=== PATIENT | female | born 1975 | race African-American/Black ===

== ENCOUNTER 2017-07-05 14:55 | Inpatient (IN) ==
[2017-07-05 16:04] LABS: Basophils # 0.1 10*3/uL (0.0-0.2); Basophils % 0.7 % (0.0-0.8); Eosinophils # 0.1 10*3/uL (0.0-0.87); Eosinophils % 0.8 % (0.00-10.9); Hematocrit 40.1 VOL% (35.7-47.0); Hemoglobin 12.9 GM/DL (12.0-16.0); Immature Granulocytes % 0.6 %; Immature Granulocytes Absolute 0.08 #; Lymphocytes # 2.7 10*3/uL (1.4-4.0); Lymphocytes % 19.1 % (21.3-54.2); Mean Corpuscular HGB Conc 32.2 GM/DL (32-36); Mean Corpuscular Hemoglobin 28 PG (27-34); Mean Corpuscular Volume 88.3 FL (87-102); Mean Platelet Volume 10.9 FL (9.6-12.0); Monocytes # 0.8 10*3/uL (0.11-0.8); Monocytes % 5.6 % (1.7-12.7); Neutrophils # 10.5 10*3/uL (1.4-7.4); Neutrophils % 73.2 % (38.7-73.9); Platelet Count 312 T/CUMM (130-400); Red Blood Count 4.54 MC/CUMM (3.8-5.5); Red Cell Distribution Width 13.2 % (9.3-17.3); White Blood Count 14.4 T/CUMM (4-12)
[2017-07-05 16:09] LABS: INR 0.9
[2017-07-05 16:18] LABS: Apearance,Urine CLEAR (Clear); Bilirubin,Urine Negative (Negative); Blood, Urine Negative (Negative); Glucose,Urine (UA) Negative (Negative); Ketones,Urine 5 mg/dL (Negative); Nitrite,Urine Negative (Negative); Protein,Urine Negative; RBC,Urine <1 /HPF (0-4); Squamous Epithelial Cell,Urine Occasional /HPF (0-10); Urine Color Straw (Yellow); Urine Specific Gravity 1.008 (1.001-1.035); Urine Urobilinogen < 2.0 EU/DL (0.2-1.0); WBC,Urine 1 /HPF (0-6)
[2017-07-05 16:29] LABS: Alanine Aminotransferase 19 U/L (13-56); Albumin 3.8 G/DL (3.4-5.0); Alkaline Phosphatase 75 U/L (45-117); Aspartate Amino Transferase 11 U/L (0-37); Bilirubin,Total < 0.39 MG/DL (0.2-1.0); Blood Urea Nitrogen 10 MG/DL (7-18); Calcium 8.7 MG/DL (8.5-10.1); Glucose 123 MG/DL (74-106); Sodium 136 MMOL/L (136-145)
[2017-07-05 16:30] LABS: Potassium 3.5 MMOL/L (3.5-5.1); Troponin I Only < 0.015 NG/ML (0.00-0.045)
[2017-07-05 16:32] LABS: Barbiturates Screen,Urine Negative (Negative); Benzodiazepines Screen,Urine Negative (Negative); Cannabinoid Screen,Urine Negative (Negative); Opiate Screen,Urine Negative (Negative); Phencyclidine Screen,Urine Negative (Negative)
[2017-07-05] MEDS ORDERED: ONDANSETRON 4 MG/2 ML VIAL IV PRN (18:21)
[2017-07-05] MEDS ORDERED: PROMETHAZINE INJ 12.5 MG in SODIUM CHLORIDE 0.9% 50 ML IV STA (18:44)
[2017-07-05] MEDS: cefTRIAXone 2,000 MG in SODIUM CHLORIDE 0.9% 100 ML IV SCH (20:56)
[2017-07-05] MEDS: ENOXAPARIN 40 MG/0.4 ML SYRINGE SUBCUT SCH (21:01)
[2017-07-06 07:23] LABS: Basophils # 0.1 10*3/uL (0.0-0.2); Basophils % 0.7 % (0.0-0.8); Eosinophils # 0.2 10*3/uL (0.0-0.87); Hematocrit 36.8 VOL% (35.7-47.0); Immature Granulocytes % 0.5 %; Immature Granulocytes Absolute 0.04 #; Lymphocytes # 2.5 10*3/uL (1.4-4.0); Lymphocytes % 28.3 % (21.3-54.2); Mean Corpuscular HGB Conc 32.6 GM/DL (32-36); Mean Corpuscular Hemoglobin 28 PG (27-34); Mean Platelet Volume 11.2 FL (9.6-12.0); Monocytes # 0.7 10*3/uL (0.11-0.8); Monocytes % 7.6 % (1.7-12.7); Neutrophils # 5.4 10*3/uL (1.4-7.4); Neutrophils % 60.9 % (38.7-73.9); Platelet Count 310 T/CUMM (130-400); Red Blood Count 4.23 MC/CUMM (3.8-5.5); Red Cell Distribution Width 13.3 % (9.3-17.3); White Blood Count 8.9 T/CUMM (4-12)
[2017-07-06] MEDS: hydroCHLOROthiazide 12.5 MG CAPSULE PO SCH (09:00)
[2017-07-06] MEDS: PANTOPRAZOLE 40 MG TABLET PO SCH (09:00)
[2017-07-06] MEDS: amLODIPine 10 MG TABLET PO SCH (09:00)
[2017-07-06] MEDS: FLUoxetine 20 MG CAPSULE PO SCH ×2 (09:00→09:03)
[2017-07-06] MEDS: oxyCODONE/ACETAMINOPHEN 5-325 MG TABLET PO PRN ×2 (10:53→21:56)
[2017-07-06] MEDS: BUTALBITAL/ACETAMIN/CAFFEINE 50-325-40 MG TABLET PO PRN (18:38)
[2017-07-06] MEDS: cefTRIAXone 2,000 MG in SODIUM CHLORIDE 0.9% 100 ML IV SCH (20:30)
[2017-07-06] MEDS: ENOXAPARIN 40 MG/0.4 ML SYRINGE SUBCUT SCH (20:32)
[2017-07-06] MEDS ORDERED: TOPIRAMATE 25 MG TABLET PO SCH (21:00)
[2017-07-07] MEDS: amLODIPine 10 MG TABLET PO SCH (08:26)
[2017-07-07] MEDS: oxyCODONE/ACETAMINOPHEN 5-325 MG TABLET PO PRN (08:26)
[2017-07-07] MEDS: FLUoxetine 20 MG CAPSULE PO SCH (08:26)
[2017-07-07] MEDS: PANTOPRAZOLE 40 MG TABLET PO SCH (08:26)
[2017-07-07] MEDS: hydroCHLOROthiazide 12.5 MG CAPSULE PO SCH (08:26)
[2017-07-07 11:52] VITALS: BP 133/67
[2017-07-07] MEDS: BUTALBITAL/ACETAMIN/CAFFEINE 50-325-40 MG TABLET PO PRN (13:32)
== END 2017-07-07 15:45 | disposition home or self-care (01) | DRG 103 ==
LOC: EDBD → EDUNIT# → N.ED 14:55 → N.EDINP 17:45 → N.5E 19:39
PROVIDERS: ADMIT Internal Medicine; ATTEND Internal Medicine

== ENCOUNTER 2018-01-06 10:02 | Observation (INO) ==
[2018-01-06] MEDS ORDERED: ONDANSETRON 4 MG/2 ML VIAL IV PRN (11:10)
[2018-01-06] MEDS ORDERED: ACETAMINOPHEN 325 MG TABLET PO PRN (11:10)
[2018-01-06] MEDS ORDERED: PROMETHAZINE 25 MG TABLET PO PRN (11:12)
[2018-01-06] MEDS ORDERED: NAPROXEN EC 375 MG TABLET PO PRN (11:12)
[2018-01-06] MEDS ORDERED: hydrALAZINE 20 MG/1 ML VIAL IV PRN (11:13)
[2018-01-06 12:35] LABS: Basophils # 0.1 10*3/uL (0.0-0.2); Basophils % 0.7 % (0.0-0.8); Eosinophils # 0.1 10*3/uL (0.0-0.87); Eosinophils % 0.7 % (0.00-10.9); Hemoglobin 12.2 GM/DL (12.0-16.0); Immature Granulocytes % 0.8 %; Immature Granulocytes Absolute 0.08 #; Lymphocytes # 2.5 10*3/uL (1.4-4.0); Lymphocytes % 25.5 % (21.3-54.2); Mean Corpuscular HGB Conc 31.3 GM/DL (32-36); Mean Corpuscular Hemoglobin 28 PG (27-34); Mean Corpuscular Volume 88.4 FL (87-102); Monocytes # 0.6 10*3/uL (0.11-0.8); Monocytes % 6.4 % (1.7-12.7); Neutrophils # 6.5 10*3/uL (1.4-7.4); Neutrophils % 65.9 % (38.7-73.9); Platelet Count 285 T/CUMM (130-400); Red Blood Count 4.41 MC/CUMM (3.8-5.5); Red Cell Distribution Width 13.3 % (9.3-17.3); White Blood Count 9.8 T/CUMM (4-12)
[2018-01-06 12:55] LABS: Albumin 3.5 G/DL (3.4-5.0); Bilirubin,Total 0.4 MG/DL (0.2-1.0); Calcium 8.3 MG/DL (8.5-10.1); Osmolality,Calculated 278.3 MOS/KG (273-304); Potassium 3.3 MMOL/L (3.5-5.1); Total Protein 7.6 G/DL (6.4-8.3)
[2018-01-06 13:07] LABS: Troponin I < 0.015 NG/ML (0.00-0.045)
[2018-01-06] MEDS: KETOROLAC 10 MG TABLET PO PRN (16:18)
[2018-01-06 17:57] LABS: Apearance,Urine CLEAR (Clear); Bilirubin,Urine Negative (Negative); Blood, Urine Negative (Negative); Glucose,Urine (UA) Negative (Negative); Ketones,Urine Negative (Negative); Mucus,Urine Occasional /LPF (Occasional); Nitrite,Urine Negative (Negative); Protein,Urine Negative; Urine Color Yellow (Yellow); Urine Specific Gravity 1.012 (1.001-1.035); Urine Urobilinogen < 2.0 EU/DL (0.2-1.0); WBC,Urine <1 /HPF (0-6)
[2018-01-06] MEDS ORDERED: KETOROLAC 10 MG TABLET PO SCH (18:00)
[2018-01-06] MEDS ORDERED: TOPIRAMATE 100 MG TABLET PO SCH (21:00)
[2018-01-06] MEDS: DOCUSATE SODIUM 100 MG CAPSULE PO SCH (21:01)
[2018-01-07] MEDS: DOCUSATE SODIUM 100 MG CAPSULE PO SCH (08:55)
[2018-01-07] MEDS ORDERED: hydroCHLOROthiazide 12.5 MG CAPSULE PO SCH (09:00)
[2018-01-07] MEDS ORDERED: PANTOPRAZOLE 40 MG TABLET PO SCH (09:00)
[2018-01-07] MEDS ORDERED: amLODIPine 5 MG TABLET PO SCH (09:00)
[2018-01-07 16:25] VITALS: BP 132/76
[2018-01-07] MEDS: KETOROLAC 10 MG TABLET PO PRN (16:48)
== END 2018-01-07 18:15 | disposition home or self-care (01) ==
LOC: N.4E
PROVIDERS: ADMIT Family Medicine; ATTEND Family Medicine